=== PATIENT | male | born 1990 ===

== ENCOUNTER 2018-07-20 20:17 | Emergency (ER) | payer BC ==
--- NOTE | 2018-07-20 21:08 | ED PDOC ---
HPI: Back Time Seen by Provider: 07/20/18 20:25 Chief Complaint (Nursing): Back Pain Chief Complaint (Provider): Back Pain History Per: Patient History/Exam Limitations: no limitations Onset/Duration Of Symptoms: Mins (30x minutes prior to arrival) Current Symptoms Are (Timing): Still Present Severity: Moderate Exacerbating Factor(s): Turning Additional Complaint(s): 28 year old male with no significant past medical history presents to the ED for an evaluation of back pain that started 30x minutes prior to arrival. Patient states that 30x minutes prior to arrival, while doing regular daily activities, he started experiencing right sided upper back pain, which has an occasional radiating pulsation going up towards his right shoulder. Patient states that the pain worsens with exhalation and had a moment of shortness of breath initially, but denies having shortness of breath now. Patient also complains of having numbness and tingling of the right hand since the episode began. Patient also reports having dizziness when standing at onset of symptoms, and when standing in the ED. Patient states that he works at [employer] and lifts heavy objects. Patient denies having a history of herniated discs, a history of back pain, fevers, chills, trauma, viral symptoms, nausea, vomiting, diarrhea, or taking medications prior to arrival. PMD: None provided. Past Medical History Reviewed: Historical Data, Nursing Documentation, Vital Signs Vital Signs: Last Vital Signs Temp 98.2 F 07/20/18 20:20 Pulse 86 07/20/18 20:20 Resp 16 07/20/18 20:20 BP 139/79 07/20/18 20:20 Pulse Ox 98 07/20/18 20:20 ROBERT Report Viewed: Yes - Medical History PMH: No Chronic Diseases - Family History Family History: States: No Known Family Hx - Social History Current smoker - smoking cessation education provided: Yes - Home Medications Home Medications: Ambulatory Orders Medication Instructions Recorded Cyclobenzaprine [Cyclobenzaprine 10 mg PO Q8 PRN 5 Days tab 07/20/18 HCl] Ibuprofen [Motrin Tab] 800 mg PO Q6 PRN 7 Days tab 07/20/18 - Allergies Allergies/Adverse Reactions: Allergies Allergy/AdvReac Type Severity Reaction Status Date / Time passion fruit Allergy SWELLING Verified 07/20/18 20:20 Review of Systems ROS Statement: Except As Marked, All Systems Reviewed And Found Negative Constitutional: Negative for: Fever, Chills Respiratory: Negative for: Shortness of Breath (moment of Shortness of breath at onset, denies Shortness of breath in ED.) Gastrointestinal: Negative for: Nausea, Vomiting, Diarrhea Musculoskeletal: Positive for: Back Pain (right sided upper back pain, occasional radiating pulsation upwards towards right shoulder) Neurological: Positive for: Numbness (and tingling of right hand), Dizziness (when standing up) Physical Exam - Reviewed Nursing Documentation Reviewed: Yes Vital Signs Reviewed: Yes - Physical Exam Appears: Positive for: Well, Non-toxic, No Acute Distress Head Exam: Positive for: ATRAUMATIC, NORMOCEPHALIC Skin: Positive for: Normal Color, Warm, Dry Cardiovascular/Chest: Positive for: Regular Rate, Rhythm Respiratory: Positive for: Normal Breath Sounds Pulses-Radial (L): 2+ Pulses-Radial (R): 2+ Back: Positive for: Other (some tenderness to palpation of the mid thoracic spine. (-) paravertebral tenderness. Full ROM with flexion of the back. Has reproducible pain with right lateral rotation of back and flexion of right shoulder. Capillary refill <2 seconds) Neurological/Psych: Positive for: Awake, Alert, Oriented (3x) - Laboratory Results Result Diagrams: 07/20/18 21:20 07/20/18 21:20 - ECG O2 Sat by Pulse Oximetry: 98 (RA) Pulse Ox Interpretation: Normal Medical Decision Making Medical Decision Makin:25 Initial impression: 28 year old male with back pain Initial plan: * CT thoracic spine w/o contrast * XRay chest * CBC * BMP * orthostatic blood pressures * ibuprofen 600 mg tab 1 tab PO * reevaluation CXR read by me: no acute pathology Orthostatics: lyin/77 HR 70; sittin/78 HR 82, 105/73 HR 94. NS 500mL IV x [address] thoracic spine w/o IV contrast: 1. Mild scarring in both lung apices. 2. Cardiomegaly is noted 3. There is elevation of the Right hemidiaphragm 4. No evidence ofor high grade central canal high grade neural foraminal stenosis. 5. No evidence for acute fracture or subluxation in the thoracic spine 6. No focal osseous lesions identified. Scribe Attestation: Documented byMakenzie Damon, acting as a scribe for Pam Bai PA-C. Provider Scribe Attestation: All medical record entries made by the Scribe were at my direction and personally dictated by me. I have reviewed the chart and agree that the record accurately reflects my personal performance of the history, physical exam, medical decision making, and the department course for this patient. I have also personally directed, reviewed, and agree with the discharge instructions and disposition. Results explained to patient and he was advised to follow up with a primary care doctor for further evaluation of enlarged heart noted on CT scan and CXR. Pt fee ls mild improvement in back pain and resolution of back pain. Disposition - Clinical Impression Clinical Impression: Back pain - Patient ED Disposition Is Patient to be Admitted: No Counseled Patient/Family Regarding: Studies Performed, Diagnosis, Need For Followup, Rx Given - Disposition Referrals: Monroe Orantes MD [Staff Provider] - Disposition: Routine/Home Disposition Time: 23:40 Condition: STABLE Additional Instructions: Follow up with your primary care doctor for persistent pain. Take Ibuprofen as needed for pain. Take muscle relaxer for persistent pain. Avoid taking Cyclobenzaprine if you will be driving or operating heavy machinery as it can make you sleepy. Return to ER if your shortness of breath or dizziness worsen. You are encouraged to drink more water as you are likely somewhat dehydrated. Prescriptions: Cyclobenzaprine [Cyclobenzaprine HCl] 10 mg PO Q8 PRN 5 Days tab PRN Reason: Muscle Spasm Ibuprofen [Motrin Tab] 800 mg PO Q6 PRN 7 Days tab PRN Reason: Pain, Moderate (4-7) Instructions: Upper Back Pain (DC) Forms: [facility] (Mongolian), [facility] ED School/Work Excuse Print Language: KAZAKH
[2018-07-20 21:29] LABS: BASO # 0.1 K/uL (0.0-0.2); BASO % 1.4 % (0.0-2.0); EOS # 0.1 K/uL (0.0-0.7); EOS % 0.7 % (0.0-4.0); HEMOGLOBIN 14.9 g/dL (12.0-18.0); LYMPH # 2.2 K/uL (1.0-4.3); LYMPH % 21.1 % (20.0-40.0); MEAN CELL VOLUME 87.2 fl (80.0-94.0); MEAN CORPUSCULAR HEMOGLOBIN 29.4 pg (27.0-31.0); MEAN CORPUSCULAR HGB CONC 33.7 g/dL (33.0-37.0); MEAN PLATELET VOLUME 8.2 fl (7.2-11.7); MONO # 0.8 K/uL (0.0-0.8); MONO % 7.8 % (0.0-10.0); NEUT # 7.2 K/uL (1.8-7.0); NRBC % 0.1 % (0.0-0.0); RBC 5.09 Mil/uL (4.40-5.90); RED CELL DISTRIBUTION WIDTH 13.9 % (11.5-14.5); WHITE BLOOD COUNT 10.5 K/uL (4.8-10.8)
[2018-07-20 21:38] LABS: BLOOD UREA NITROGEN 15 mg/dl (9-20); CALCIUM 9.8 mg/dL (8.4-10.2); GFR NON-AFRICAN AMERICAN > 60
[2018-07-20] MEDS ORDERED: Sodium Chloride 0.9% 500 ML IV STA (22:20)
[2018-07-20 22:46] VITALS: PULSE 78; RESP 18; TEMP 98
[2018-07-20 23:40] VITALS: BP 122/80; O2SAT 98
--- NOTE | 2018-07-21 08:14 | CT ---
Date of service: 07/20/2018 PROCEDURE: CT Thoracic Spine without contrast HISTORY: right arm numbness and back pain COMPARISON: None available. TECHNIQUE: Axial computed tomography images were obtained of the thoracic spine without intravenous contrast. Coronal and sagittal reformatted images were created and reviewed. Radiation dose: Total exam DLP = 584.44 mGy-cm. This CT exam was performed using one or more of the following dose reduction techniques: Automated exposure control, adjustment of the mA and/or kV according to patient size, and/or use of iterative reconstruction technique. FINDINGS: VERTEBRAE: Unremarkable. No fracture. Normal alignment. DISCS/SPINAL CANAL/NEURAL FORAMINA: Within the limits of the CT technique, no disc herniation seen. No central canal or neural foraminal stenosis.. PARASPINAL SOFT TISSUES: Unremarkable. OTHER FINDINGS: Unremarkable. IMPRESSION: Unremarkable CT of the thoracic spine.
--- NOTE | 2018-07-21 08:30 | RAD ---
Date of service: 07/20/2018 HISTORY: shortness of breath, cough COMPARISON: No prior. TECHNIQUE: Chest PA and lateral FINDINGS: LUNGS: No active pulmonary disease. PLEURA: No significant pleural effusion identified. No pneumothorax apparent. CARDIOVASCULAR: No aortic atherosclerotic calcification present. Normal cardiac size. No pulmonary vascular congestion. OSSEOUS STRUCTURES: No significant abnormalities. VISUALIZED UPPER ABDOMEN: Normal. OTHER FINDINGS: None. IMPRESSION: No active disease.
--- NOTE | 2018-07-21 20:02 | CARD ---
APPROVED REPORT Date of service: 07/20/2018 EKG Measurement Heart [id number] <Conclusion> Sinus bradycardia Incomplete RBBB Borderline ECG
== END 2018-07-20 23:39 | disposition home or self-care (01) ==
LOC: H.ER 20:17
DX: M54.9 Dorsalgia, unspecified (principal); F17.200 Nicotine dependence, unspecified, uncomplicated
CPT/HCPCS: 71046; 72128; 80048; 85025; 93005; 99283; J7040